=== PATIENT | female | born 1995 | race Caucasian/White ===

== ENCOUNTER 2021-01-13 09:48 | Inpatient (IN) | payer BC, SELFPAY ==
[~2021-01-13] VITALS: Ht 154.9 cm; Wt 80.7 kg
[2021-01-13] MEDS ORDERED: ONDANSETRON 4 MG/2 ML VIAL IVP PRN (11:05)
[2021-01-13] MEDS ORDERED: CARBOPROST 250 MCG/ML AMP IM PRN (11:05)
[2021-01-13] MEDS ORDERED: METHYLERGONOVINE 0.2 MG/ML AMP IM PRN (11:05)
[2021-01-13 11:34] LABS: BASOPHILS % (AUTO) 0.2 % (0.0-2.0); EOSINOPHILS # (AUTO) 0.1 K/uL (0-0.4); HEMATOCRIT 33.2 % (36-48); HEMOGLOBIN 10.8 g/dL (12.0-16.0); LYMPHOCYTES # (AUTO) 1.9 K/uL (2.5-16.5); LYMPHOCYTES % (AUTO) 15.4 % (20.5-51.1); MEAN CORPUSCULAR HEMOGLOBIN 26 pg (27-31); MEAN CORPUSCULAR HGB CONC 33 g/dL (33-37); MEAN CORPUSCULAR VOLUME 79.6 fL (80-94); MONOCYTES # (AUTO) 0.9 K/uL (0.8-1.0); MONOCYTES % (AUTO) 7.1 % (1.7-9.3); NEUTROPHILS # (AUTO) 9.5 K/uL (1.8-7.7); NEUTROPHILS % (AUTO) 76.3 % (42.2-75.2); PLATELET COUNT (AUTO) 230 K/uL (140-450); RED BLOOD CELL COUNT(AUTO) 4.17 MIL/uL (4.20-5.40); RED CELL DISTRIBUTION WIDTH 13.4 % (11.6-13.7); WHITE BLOOD COUNT (AUTO) 12.5 K/uL (4.8-10.8)
[2021-01-13 11:38] LABS: BILIRUBIN,URINE NEGATIVE (NEGATIVE); BLOOD, URINE 3+ (NEGATIVE); COLOR,URINE YELLOW (YELLOW); LEUKOCYTE ESTERASE ,URINE 1+ (NEGATIVE); NITRITE, URINE NEGATIVE (NEGATIVE); PH,URINE 6.5 (5.0-9.0); UGLUCOSE NEGATIVE (NEGATIVE)
[2021-01-13] MEDS: LACTATED RINGERS 1,000 ML IV SCH ×2 (11:40→18:38)
[2021-01-13 11:47] LABS: ALBUMIN 2.5 g/dL (3.4-5.0); ANION GAP 13.5 (8-16); CARBON DIOXIDE 23.9 mmol/L (21-32); CREATININE 0.7 mg/dL (0.6-1.3); POTASSIUM 3.4 mmol/L (3.5-5.1); TOTAL BILIRUBIN 0.5 mg/dL (0.0-1.0)
[2021-01-13 12:29] LABS: WBC,URINE 0-5 /HPF (0-5)
[2021-01-13 12:30] LABS: APPEARANCE,URINE HAZY (CLEAR)
[2021-01-13 18:47] VITALS: BP 111/55
[2021-01-13] MEDS: MORPHINE SULFATE 10 MG/ML VIAL IVP PRN (23:11)
[2021-01-14] MEDS: LACTATED RINGERS 1,000 ML IV SCH ×2 (02:38→10:30)
[2021-01-14] MEDS: MORPHINE SULFATE 10 MG/ML VIAL IVP PRN ×2 (02:54→08:05)
[2021-01-14 08:05] VITALS: BP 116/69
--- NOTE | 2021-01-14 08:52 | NUR ---
PATIENT HAS BEEN SCREENED AND CATEGORIZED LOW NUTRITION RISK. PATIENT WILL BE SEEN WITHIN 7 DAYS OF ADMISSION. 01/20/[address]
[2021-01-14 11:21] LABS: RAPID PLASMA REAGIN NON-REACTIVE (Non Reactiv)
[2021-01-14] MEDS ORDERED: ROPIVACAINE 0.2%/NS PREMIX 200 ML EPI ONE (18:31)
[2021-01-14] MEDS ORDERED: OXYTOCIN 20 UNITS/LR PREMIX 1,000 ML IV ONE (19:50)
[2021-01-14] MEDS ORDERED: fentaNYL citrate 0.05 MG/ML VIAL ONE (22:27)
[2021-01-14] MEDS ORDERED: MEASLES, MUMPS, AND RUBELLA 1 VIAL SQVAC ONE (23:20)
[2021-01-14] MEDS ORDERED: OXYTOCIN 10 UNITS/ML VIAL IM PRN (23:20)
[2021-01-14] MEDS ORDERED: bisacodyL 5 MG TABEC PO PRN (23:20)
[2021-01-14] MEDS ORDERED: BENZOCAINE/MENTHOL 20%-0.5% 60 GM CAN TP PRN (23:20)
[2021-01-14] MEDS ORDERED: SIMETHICONE 80 MG TAB.CHEW PO PRN (23:20)
[2021-01-14] MEDS ORDERED: METHYLERGONOVINE 0.2 MG TAB PO PRN (23:20)
[2021-01-14] MEDS ORDERED: IBUPROFEN 600 MG TAB PO PRN (23:20)
[2021-01-14] MEDS ORDERED: IBUPROFEN 800 MG TAB PO PRN (23:20)
[2021-01-14] MEDS ORDERED: DOCUSATE SODIUM 100 MG GELCAP PO PRN (23:20)
[2021-01-14] MEDS ORDERED: METHYLERGONOVINE 0.2 MG/ML AMP IM PRN (23:20)
[2021-01-15 06:39] LABS: HEMATOCRIT 31.8 % (36-48); HEMOGLOBIN 10.4 g/dL (12.0-16.0)
[2021-01-15] MEDS ORDERED: AMPICILLIN 250 MG CAP PO SCH (18:00)
[2021-01-15] MEDS ORDERED: AMPICILLIN 1,000 MG in NACL 0.9% 50 ML IV SCH (18:00)
[2021-01-15] MEDS: AMOXICILLIN 500 MG CAP PO SCH (21:11)
[2021-01-16] MEDS ORDERED: CAMERA MC ONE (01:55)
[2021-01-16] MEDS: AMOXICILLIN 500 MG CAP PO SCH ×3 (05:01→21:00)
[2021-01-16] MEDS: LACTATED RINGERS 1,000 ML IV SCH ×2 (10:00→16:05)
[2021-01-16] MEDS ORDERED: CITRIC ACID/SODIUM CITRATE 30 ML UDC PO SCH (10:40)
[2021-01-16] MEDS ORDERED: DESFLURANE 240 ML BTL INH ONE (20:28)
[2021-01-16] MEDS ORDERED: SUGAMMADEX SODIUM 200 MG/2 ML VIAL IV ONE (20:28)
[2021-01-16] MEDS ORDERED: fentaNYL citrate 0.05 MG/ML VIAL ONE (20:28)
[2021-01-16] MEDS ORDERED: SUCCINYLCHOLINE CHLORIDE 200 MG/10 ML VIAL IVP ONE (20:28)
[2021-01-16] MEDS ORDERED: PROPOFOL 200 MG/20 ML VIAL IV ONE (20:28)
[2021-01-16] MEDS ORDERED: DEXAMETHASONE 4 MG/ML VIAL ONE (20:28)
[2021-01-16] MEDS ORDERED: ROCURONIUM 50 MG/5 ML VIAL IV ONE (20:28)
[2021-01-16] MEDS ORDERED: ONDANSETRON 4 MG/2 ML VIAL ONE (20:28)
[2021-01-16] MEDS ORDERED: LIDOCAINE/EPI 1% 1:100000 20 ML VIAL INJ ONE (20:39)
[2021-01-16] MEDS ORDERED: BUPIVACAINE-MPF 0.25% 30 ML VIAL INJ ONE (20:39)
[2021-01-16] MEDS ORDERED: ONDANSETRON 4 MG/2 ML VIAL IVP PRN (21:35)
[2021-01-16] MEDS: HYDROmorphone 1 MG/ML AMP IVP PRN ×2 (21:40→21:50)
[2021-01-16] MEDS ORDERED: oxyCODONE/APAP 5/325 MG 1 TAB TAB PO PRN ×2 (21:45)
[2021-01-16] MEDS ORDERED: HYDROmorphone PFS 2 MG/ML SYR ONE (21:46)
[2021-01-17] MEDS: AMOXICILLIN 500 MG CAP PO SCH (04:59)
[2021-01-17] MEDS ORDERED: AMOX500C25 PO (11:13)
== END 2021-01-17 13:25 | disposition home or self-care (01) | DRG 797 ==
LOC: MLD 09:48 → OBSVTOIN 01-14 04:32 → MFCC 01-15 01:10
PROVIDERS: ADMIT Obstetrics & Gynecology; ATTEND Obstetrics & Gynecology
PROC: 10E0XZZ Delivery of Products of Conception, External Approach (ICD-10-PCS; principal; 2021-01-14)
PROC: 3E0R3BZ Introduction of Anesthetic Agent into Spinal Canal, Percutaneous Approach (ICD-10-PCS; 2021-01-14)
PROC: 00HU33Z Insertion of Infusion Device into Spinal Canal, Percutaneous Approach (ICD-10-PCS; 2021-01-14)
PROC: 3E0134Z Introduction of Serum, Toxoid and Vaccine into Subcutaneous Tissue, Percutaneous Approach (ICD-10-PCS; 2021-01-14)
PROC: 3E0234Z Introduction of Serum, Toxoid and Vaccine into Muscle, Percutaneous Approach (ICD-10-PCS; 2021-01-15)
PROC: 0UB70ZZ Excision of Bilateral Fallopian Tubes, Open Approach (ICD-10-PCS; 2021-01-16)
DX: O99.02 Anemia complicating childbirth (principal); O23.43 Unspecified infection of urinary tract in pregnancy, third trimester; Z37.0 Single live birth; Z20.822 Contact with and (suspected) exposure to COVID-19; D64.9 Anemia, unspecified; E87.6 Hypokalemia; O99.284 Endocrine, nutritional and metabolic diseases complicating childbirth; B95.2 Enterococcus as the cause of diseases classified elsewhere; Z3A.38 38 weeks gestation of pregnancy; Z30.2 Encounter for sterilization; Z23 Encounter for immunization
CPT/HCPCS: 36415; 51702; 59409; 80053; 81001; 85018; 85025; 86592; 86886; 86900; 86901; 87086; 87186; G0378; J0330; J1100; J1170; J2001; J2270; J2405; J2590; J2704; J2795; J3010; J3490; J7120